=== PATIENT | male | born 1975 | race Caucasian/White ===

== ENCOUNTER 2016-04-06 13:53 | Emergency (ER) | payer MEDICAID ==
[~2016-04-06] VITALS: Ht 170.2 cm; Wt 93.9 kg
[2016-04-06 14:06] VITALS: BP 115/58
--- NOTE | 2016-04-06 16:16 | NUR ---
PT CAME TO ER DUE TO LACERATION TO LEFT LITTLE FINGER.DENIES N/V/D; SKIN IS PINK/WARM/DRY; AAOX4 WITH EVEN AND STEADY GAIT; LUNGS CLEAR BL; HR EVEN AND REGULAR; PT DENIES ANY FEVER, CP, SOB, OR COUGH AT THIS TIME; PATIENT STATES PAIN OF 2/10 AT THIS TIME; PATIENT POSITIONED FOR COMFORT; HOB ELEVATED; BEDRAILS UP X2; BED DOWN. NEEDS ATTENDED.ER MD MADE AWARE OF PT STATUS.
--- NOTE | 2016-04-06 16:40 | NUR ---
LEFT LITTLE FINGER DRESSING INTACT.PT VERBALIZES H WANTS TO GO HOME.
--- NOTE | 2016-04-06 17:21 | NUR ---
PT AAO. C/O LEFT FINGER PAIN.DR CARLTON MADE AWARE OF PT'S CONDITION.
--- NOTE | 2016-04-06 17:22 | NUR ---
DR CARLTON AT BEDSIDE
[2016-04-06] MEDS ORDERED: LIDOCAINE 1% 500 MG/50 ML VIAL INJ ONE (17:30)
--- NOTE | 2016-04-06 17:49 | NUR ---
DR CARLTON PERFORMING SUTURING OF PT'S LEFT LITTLE FINGER.SUTURING WELL TOLERATED BY PT.
[2016-04-06] MEDS ORDERED: ONDANSETRON 4 MG TAB ONE (17:55)
--- NOTE | 2016-04-06 17:58 | NUR ---
Paradise bhat in ED - 04/06/16 at [address] BRANDT HILLMAN.GIVE ZOFRAN 4 MG OPAL FOR N/V.
[2016-04-06] MEDS ORDERED: BACITRACIN OINT 500 UNITS/GM PKT TP ONE ×3 (17:59→18:05)
[2016-04-06] MEDS ORDERED: ONDANSETRON 4 MG ODT PO ONE ×2 (18:00→18:05)
--- NOTE | 2016-04-06 18:02 | NUR ---
PT C/O NAUSEA.PER DR CARLTON ORDER. GIVE ZOFRAN 4 MG ODT.
--- NOTE | 2016-04-06 18:20 | NUR ---
Patient discharged with v/s stable. Written and verbal after care instructions given and explained. Patient alert, oriented and verbalized understanding of instructions. Ambulatory with steady gait. All questions addressed prior to discharge. ID band removed. Patient advised to follow up with PMD. Rx of MOTRIN given. Patient educated on indication of medication including possible reaction and side effects. Opportunity to ask questions provided and answered.PHONE OF NUMBER OF [facility] FOR FOLLOW UP GIVEN
[2016-04-06 18:21] VITALS: BP 123/69
== END 2016-04-06 18:20 | disposition home or self-care (01) ==
LOC: MED 13:53
DX: S61.217A Laceration without foreign body of left little finger without damage to nail, initial encounter (principal); X58.XXXA Exposure to other specified factors, initial encounter; Y93.89 Activity, other specified; Y92.89 Other specified places as the place of occurrence of the external cause; Y99.8 Other external cause status
CPT/HCPCS: 12002; 99283; J2001; Q0162